=== PATIENT | male | born 1940 | race Caucasian/White ===

== ENCOUNTER 2017-02-05 07:05 | Day surgery (SDC) | payer MEDICARE, BC ==
[~2017-02-05 07:05] MED LIST: Lidocaine 1% with EPINEPHrine 1:100,000 50 ML MDV ONE; Sodium Chloride 0.9% 10 ML ONE; Sodium Tetradecyl Sulfate 1% 20 MG/2 ML SDV ONE
[2017-02-05] MEDS ORDERED: Propofol 200 MG/20 ML SDV ONE (07:18)
[2017-02-05] MEDS ORDERED: Midazolam 1 MG/ML 2 ML SDV ONE (07:18)
[2017-02-05] MEDS ORDERED: fentaNYL 100 MCG/2 ML SDV ONE (07:18)
[2017-02-05] MEDS ORDERED: Sodium Chloride 0.9% 1,000 ML IV SCH (07:45)
[2017-02-05] MEDS ORDERED: Lidocaine 1% w/EPINEPHrine 50 ML, Sodium Bicarbonate 5 MEQ in Sodium Chloride 0.9% 950 ML INJECT ONE (08:45)
[2017-02-05] MEDS ORDERED: Sodium Chloride 0.9% 10 ML SDV FLUSH ONE (09:03)
[2017-02-05] MEDS ORDERED: Lactated Ringers 1,000 ML ONE (09:06)
[2017-02-05 10:41] VITALS: BP 160/108
--- NOTE | 2017-02-06 08:38 | OR ---
DATE OF PROCEDURE: 02/05/2017 PROCEDURE: 1. Radiofrequency ablation of left greater saphenous vein. 2. Radiofrequency ablation of left leg perforating/varicose veins/vein cluster noted underneath ulcer. 3. Sclerotherapy, left leg, multiple. 4. Debridement of ulcer, left leg, 3 cm x 4 cm. COMPLICATIONS: None. BORING AND FILLING MACHINE OPERATOR: None. PREOPERATIVE DIAGNOSES: 1. Venous/varicose vein insufficiency with inflammation and pain. 2. Venous ulcer. POSTOPERATIVE DIAGNOSES: 1. Venous/varicose vein insufficiency with inflammation and pain. 2. Venous ulcer. ANESTHESIA: MAC. RISKS: Risks, benefits, alternatives, and limitations, including, but not limited to infection, bleeding, and injury to structures such as the DVT formation, other risks were explained to the patient and wished to proceed. PROCEDURE IN DETAIL: The patient was placed in supine position. Left GSV was identified at the level of the ankle. This was accessed using a 21-gauge needle exchanged for 35,000 wire, then exchanged for a 7-Setswana sheath. The RFA probe was advanced to 3 cm from the saphenous femoral junction. Tumescent was injected in 1 cm jacket around this. This was very close to the skin, but was verified as second and third time with extra fluid being introduced. The RFA probe was then deployed x2 proximally, distally, and x1 in all other segments. Direct even pressure was performed during this aspect. The sheath and device were then removed. Direct pressure was held for 10 minutes and Dermabond was applied. The patient was also noted to have this perforating vein/varicose vein noted underneath the venous ulcer. This was injected with 4 mL of sodium tetradecyl. This was a 0.33% strength. No evidence of leak into the deep system was noted. The multiple other veins in the left leg were also injected using 0.33% sodium tetradecyl. There were six on the left. No more than 2 mL was injected in one location. This was always drawn back to ensure intravascular injection only. Dressings were lightly compressed due to the patient's arterial concomitant disease. The patient tolerated the procedure well. José Meyer MD /[id number]
== END 2017-02-05 10:40 | disposition home or self-care (01) ==
LOC: JP.SDS 07:05
PROVIDERS: ATTEND Surgery
DX: I87.2 Venous insufficiency (chronic) (peripheral) (principal); I83.812 Varicose veins of left lower extremity with pain; I83.228 Varicose veins of left lower extremity with both ulcer of other part of lower extremity and inflammation; I10 Essential (primary) hypertension; K21.9 Gastro-esophageal reflux disease without esophagitis; E78.00 Pure hypercholesterolemia, unspecified; F17.200 Nicotine dependence, unspecified, uncomplicated
CPT/HCPCS: 11042; 36471; 36475; 36476; J1642; J2250; J2704; J3010; J7040; J7050; J7120; J3490

== ENCOUNTER 2017-11-25 17:40 | Emergency (ER) | payer MEDICARE, BC ==
[2017-11-25 19:50] VITALS: BP 162/88
--- NOTE | 2017-11-25 20:33 | EDM.PDOC ---
ED HPI GENERAL MEDICAL PROBLEM - General Chief Complaint: Lower Extremity Injury/Pain Stated Complaint: INFECTION/LT FOOT Time Seen by Provider: 11/25/17 20:15 Source of Information: Reports: Patient, Family, Old Records History Limitations: Reports: No Limitations - History of Present Illness INITIAL COMMENTS - FREE TEXT/NARRATIVE: 77 yo male recently got out of a [facility] after a short stay after surgery on his R LE. He has seen Dr. Meyer in the past. Says that his L foot has been getting darker and one toe black over the past several days. Did not tell anyone about this apparently. Did make an appt to see his SURVEY INTERVIEWER for tomorrow, but that office called him back late this afternoon and told him to come to the ER. Not having fevers. Pain is tolerable. Onset: Gradual Onset Date: 11/21/17 Duration: Day(s):, Getting Worse Location: Reports: Lower Extremity, Left Quality: Reports: Dull Severity: Mild Improves with: Reports: None Worsens with: Reports: Other (? time) Context: Reports: Other (Has known severe PVD) Associated Symptoms: Reports: No Other Symptoms Treatments SUPERVISOR FABRICATION AND ASSEMBLY: Reports: Other (see below) (none) left foot Pain Score (Numeric/FACES): 5 - Related Data Allergies Allergy/AdvReac Type Severity Reaction Status Date / Time No Known Allergies Allergy Verified 11/25/17 19:36 Home Meds: Home Meds Lisinopril [Lisinopril] 5 mg PO DAILY 02/08/15 [History] Metoprolol Tartrate 100 mg PO BID 02/08/15 [History] Multivitamin with Minerals [Multiple Vitamin] 1 tab PO DAILY 02/08/15 [History] Ranitidine HCl 150 mg PO ASDIRECTED PRN 02/08/15 [History] Simvastatin [Zocor] 40 mg PO BEDTIME 02/08/15 [History] Warfarin Sodium 7.5 mg PO MOWEFR 02/08/15 [History] Warfarin Sodium [Warfarin Sodium] 5 mg PO ASDIRECTED 11/25/17 [History] Past Medical History HEENT History: Reports: Cataract, Impaired Vision Cardiovascular History: Reports: Afib, High Cholesterol, Hypertension Gastrointestinal History: Reports: GERD Genitourinary History: Reports: Prostate Disorder Hematologic History: Reports: Anticoagulation Therapy Oncologic (Cancer) History: Reports: Prostate Dermatologic History: Reports: Decubitus Ulcer - Past Surgical History HEENT Surgical History: Reports: Cataract Surgery GI Surgical History: Reports: Colonoscopy, EGD Male Surgical History: Reports: Prostatectomy Musculoskeletal Surgical History: Reports: Amputation, Other (See Below) Other Musculoskeletal Surgeries/Procedures:: 5 toes on right foot removed October 02 2017 Oncologic Surgical History: Reports: None Social & Family History - Tobacco Use Smoking Status *Q: Light Tobacco Smoker Years of Tobacco use: 40 Packs/Tins Daily: 0.2 Used Tobacco, but Quit: No Second Hand Smoke Exposure: No - Caffeine Use Caffeine Use: Reports: Coffee - Alcohol Use Days Per Week of Alcohol Use: 7 Number of Drinks Per Day: 3 Total Drinks Per Week: 21 - Recreational Drug Use Recreational Drug Use: No Review of Systems - Review of Systems Review Of Systems: See Below Constitutional: Reports: No Symptoms Eyes: Reports: No Symptoms Ears: Reports: No Symptoms Nose: Reports: No Symptoms Mouth/Throat: Reports: No Symptoms Respiratory: Reports: No Symptoms Cardiovascular: Reports: No Symptoms GI/Abdominal: Reports: No Symptoms Genitourinary: Reports: No Symptoms Musculoskeletal: Reports: No Symptoms Skin: Reports: Wound, Change in Color (Toes on L foot) Neurological: Reports: Other (decreased sensation) ED EXAM, GENERAL - Physical Exam Exam: See Below Exam Limited By: No Limitations General Appearance: Alert, WD/WN, No Apparent Distress Eye Exam: Bilateral Eye: Normal Inspection Ears: Normal External Exam, Normal Canal, Hearing Grossly Normal Ear Exam: Bilateral Ear: Auricle Normal, Canal Normal Nose: Normal Inspection, Normal Mucosa Throat/Mouth: Normal Inspection, Normal Lips, Normal Teeth, Normal Oropharynx, Normal Voice, No Airway Compromise Head: Atraumatic, Normocephalic Neck: Normal Inspection, Supple Respiratory/Chest: No Respiratory Distress, Lungs Clear, Normal Breath Sounds Cardiovascular: Tachycardia, Irregularly Irregular GI/Abdominal: Normal Bowel Sounds, Soft, Non-Tender, No Distention Back Exam: Normal Inspection. No: CVA Tenderness (R), CVA Tenderness (L) Neurological: Alert, Oriented, CN II-XII Intact, Normal Cognition Psychiatric: Normal Affect, Normal Mood Skin Exam: Warm, Dry, Ecchymosis, Erythema, Wound/Incision (L distal foot/toes are ischemic. No pulses palpable at knee or below. Foot and leg are warm. L middle toe is black and gangrenous. ). No: Increased Warmth Lymphatic: No Adenopathy Course - Vital Signs Last Recorded V/S: Last Vital Signs Temp 37.4 C 11/25/17 20:18 Pulse 91 11/25/17 20:18 Resp 28 H 11/25/17 20:18 BP 162/88 H 11/25/17 20:18 Pulse Ox 95 11/25/17 20:18 - Orders/Labs/Meds Labs: Laboratory Tests 11/25/17 11/25/17 11/25/17 Range/Units 20:26 20:26 20:26 WBC 11.8 H (4.5-11.0) K/uL RBC 3.80 L (4.30-5.90) M/uL Hgb 11.1 L (12.0-15.0) g/dL Hct 35.6 L (40.0-54.0) % MCV 94 (80-98) fL MCH 29 (27-31) pg MCHC 31 L (32-36) % Plt Count 284 (150-400) K/uL Sodium 134 L (140-148) mmol/L Potassium 3.8 (3.6-5.2) mmol/L Chloride 100 (100-108) mmol/L Carbon Dioxide 25 (21-32) mmol/L Anion Gap 12.8 (5.0-14.0) mmol/L BUN 21 H (7-18) mg/dL Creatinine 1.6 H (0.8-1.3) mg/dL Est Cr Clr Drug Dosing 41.83 mL/min Estimated GFR (MDRD) 42 L (>60) Glucose 136 H (74-106) mg/dL Lactic Acid 1.3 (0.4-2.0) mmol/L Calcium 9.0 (8.5-10.1) mg/dL Troponin I (0.000-0.056) ng/mL Urine Color Urine Appearance Urine pH (4.5-8.0) Ur Specific [place] (1.008-1.030) Urine Protein (NEGATIVE) mg/dL Urine Glucose (UA) (NEGATIVE) mg/dL Urine Ketones (NEGATIVE) mg/dL Urine Occult Blood (NEGATIVE) Urine Nitrite (NEGAITVE) Urine Bilirubin (NEGATIVE) Urine Urobilinogen (NORMAL) mg/dL Ur Leukocyte Esterase (NEGATIVE) Urine RBC (0-5) Urine WBC (0-5) Ur Epithelial Cells Amorphous Sediment Urine Bacteria Urine Mucus Urine Other 11/25/17 11/25/17 Range/Units 20:28 21:35 WBC (4.5-11.0) K/uL RBC (4.30-5.90) M/uL Hgb (12.0-15.0) g/dL Hct (40.0-54.0) % MCV (80-98) fL MCH (27-31) pg MCHC (32-36) % Plt Count (150-400) K/uL Sodium (140-148) mmol/L Potassium (3.6-5.2) mmol/L Chloride (100-108) mmol/L Carbon Dioxide (21-32) mmol/L Anion Gap (5.0-14.0) mmol/L BUN (7-18) mg/dL Creatinine (0.8-1.3) mg/dL Est Cr Clr Drug Dosing mL/min Estimated GFR (MDRD) (>60) Glucose (74-106) mg/dL Lactic Acid (0.4-2.0) mmol/L Calcium (8.5-10.1) mg/dL Troponin I < 0.017 (0.000-0.056) ng/mL Urine Color [place] Urine Appearance Cloudy Urine pH 5.0 (4.5-8.0) Ur Specific [place] 1.020 (1.008-1.030) Urine Protein Trace (NEGATIVE) mg/dL Urine Glucose (UA) Normal (NEGATIVE) mg/dL Urine Ketones Negative (NEGATIVE) mg/dL Urine Occult Blood Moderate (NEGATIVE) Urine Nitrite Negative (NEGAITVE) Urine Bilirubin Small (NEGATIVE) Urine Urobilinogen 4 (NORMAL) mg/dL Ur Leukocyte Esterase Negative (NEGATIVE) Urine RBC 5-10 H (0-5) Urine WBC 0-5 (0-5) Ur Epithelial Cells Few Amorphous Sediment Few Urine Bacteria Few Urine Mucus Moderate Urine Other See note Departure - Departure Time of Disposition: 21:55 Disposition: Home, Self-Care 01 Condition: Fair Clinical Impression: Gangrenous toe - Discharge Information Referrals: Kiersten Hopkins NP [Primary Care Provider] - Forms: ED Department Discharge Additional Instructions: Keep affected foot clean. F/U with Dr. Mitch mauricio. Return here for fever.
== END 2017-11-25 22:13 | disposition home or self-care (01) ==
LOC: JP.ED 17:40
DX: I96 Gangrene, not elsewhere classified (principal); E78.00 Pure hypercholesterolemia, unspecified; I10 Essential (primary) hypertension; F17.210 Nicotine dependence, cigarettes, uncomplicated; Z79.01 Long term (current) use of anticoagulants; Z79.899 Other long term (current) drug therapy
CPT/HCPCS: 36415; 80048; 81001; 83605; 84484; 85027; 99284

== ENCOUNTER 2017-12-03 08:27 | Observation (INO) | payer MEDICARE, BC ==
[~2017-12-03 08:27] MED LIST changes: +Bupivacaine 0.5% 50 ML MDV ONE; -Sodium Chloride 0.9% 10 ML ONE; -Sodium Tetradecyl Sulfate 1% 20 MG/2 ML SDV ONE; +Vit E/Lidocaine/Aloe/Collagen 14 GM TUBE TP ONE
[2017-12-03] MEDS: Sodium Chloride 0.9% 1,000 ML IV SCH (09:28)
[2017-12-03] MEDS ORDERED: ceFAZolin 1 GM Vial ONE (09:35)
[2017-12-03] MEDS ORDERED: fentaNYL 100 MCG/2 ML SDV ONE (09:45)
[2017-12-03] MEDS ORDERED: Propofol 200 MG/20 ML SDV ONE ×2 (09:45→10:53)
[2017-12-03] MEDS ORDERED: ceFAZolin 2 GM in Premix Bag 1 BAG IV ONE (09:45)
[2017-12-03] MEDS ORDERED: Midazolam 1 MG/ML 2 ML SDV ONE (09:46)
[2017-12-03] MEDS: Acetaminophen/HYDROcodone 325-10 MG Tab PO PRN ×3 (13:24→19:58)
[2017-12-03] MEDS ORDERED: Benzocaine/Cetylpyridinium/Menthol Lozenge MUCMEM PRN (14:50)
[2017-12-03] MEDS ORDERED: Promethazine 25 MG/ML SDV IM PRN (14:50)
[2017-12-03] MEDS ORDERED: Ondansetron 4 MG/2 ML SDV IVPUSH PRN (14:50)
[2017-12-03] MEDS ORDERED: Bisacodyl 5 MG Tab PO PRN (14:50)
[2017-12-03] MEDS ORDERED: Docusate Sodium 100 MG Cap PO PRN (14:50)
[2017-12-03] MEDS ORDERED: Metoclopramide 10 MG/2 ML SDV IV PRN (14:50)
[2017-12-03] MEDS ORDERED: fentaNYL 100 MCG/2 ML SDV IVPUSH PRN (14:50)
[2017-12-03] MEDS ORDERED: hydrOXYzine HCl 100 MG/2 ML SDV IM PRN (14:50)
[2017-12-03] MEDS ORDERED: Acetaminophen 325 MG Tab PO PRN (14:50)
[2017-12-03] MEDS ORDERED: diphenhydrAMINE 50 MG/ML SDV IVPUSH PRN (14:50)
[2017-12-03] MEDS ORDERED: Zolpidem 5 MG Tab PO PRN (14:50)
[2017-12-04] MEDS: Sodium Chloride 0.9% 1,000 ML IV SCH (03:38)
[2017-12-04] MEDS ORDERED: Ranitidine 150 MG Tab (PTOM) PO PRN (08:48)
[2017-12-04] MEDS ORDERED: Ibuprofen 200 MG Tab PO PRN (08:48)
[2017-12-04] MEDS ORDERED: Lisinopril 5 MG Tab PO SCH (09:00)
[2017-12-04] MEDS ORDERED: METOPROLOL TARTRATE 100 MG PO SCH (09:00)
[2017-12-04] MEDS ORDERED: Enoxaparin 40 MG/0.4 ML Syringe SUBCUT SCH (09:00)
[2017-12-04] MEDS ORDERED: Non-Formulary Medication 1 Each (Multivitamin With Minerals [Multiple Vitamin] 1 TAB) PO SCH (09:00)
[2017-12-04] MEDS ORDERED: Multivitamins with Iron/Calcium/Folic Acid/Minerals Tab PO SCH (09:30)
[2017-12-04] MEDS ORDERED: Clopidogrel 75 MG Tab (PTOM) PO SCH (09:30)
[2017-12-04] MEDS ORDERED: METOPROLOL TART 100MG (PTOM) PO SCH (09:30)
[2017-12-04] MEDS: Acetaminophen/HYDROcodone 325-10 MG Tab PO PRN (11:23)
[2017-12-04 11:36] VITALS: BP 122/60
[2017-12-04] MEDS ORDERED: amLODIPine 5 MG Tab (PTOM) PO SCH (12:00)
[2017-12-04] MEDS ORDERED: Warfarin 5 MG Tab (PTOM) PO SCH (13:00)
--- NOTE | 2017-12-04 14:27 | OR ---
DATE OF PROCEDURE: 12/03/2017 PROCEDURE PERFORMED: 1. Transmetatarsal amputation of left third toe. 2. Metatarsal amputation of the left #1 toe. 3. Transmetatarsal amputation third toe, right foot. 4. Debridement, right foot (24855). 5. Wound VAC placement, right foot (98907). COMPLICATION: None. BLEACH RANGE OPERATOR: None. FINDINGS: 1. Necrotic left third toe. 2. Exposed metatarsal bodies on the right first and third toe. PREOPERATIVE DIAGNOSIS: Osteomyelitis/ischemic toe. POSTOPERATIVE DIAGNOSIS: Osteomyelitis/ischemic toe. RISKS: Risks, benefits, alternatives, limitations including, but not limited to infection, bleeding, and osteomyelitis, requirement for revisional surgery along with cardiovascular risks were explained to the patient and he wished to proceed. PROCEDURE IN DETAIL: The patient was placed in supine position. The left leg would be addressed first. This would be an amputation in a classic ray type amputation. 1% lidocaine was used to anesthetize the toe. This was in a circumferential fashion. This toe was then transected. Using a longitudinal incision, the right amputation along the acess to the metatarsal head would be performed. This was then mobilized with electrocautery and a TPS saw was used to transect the bone. This was then thoroughly irrigated. The ligaments and tendons were transected and approximated. They were then transected by providing tension on these and then subsequent transection. This was then approximated with 3-0 Vicryl, 4-0 Vicryl, and 4-0 Prolene with a single piece of iodoform gauze was placed within this. The right leg was addressed next and first and third metatarsals were noted to be sticking out from the tissue of the wound and therefore right tip amputations were then performed on this spot using longitudinal incisions on the first and third toe metatarsals and then transaction with total power saws. These were then sent to culture/pathology. This was then reapproximated with 3-0 Vicryl. The remainder of the wound bed was debrided using a 15 blade and a Weck blade. The wound VAC was then applied in standard form using silver and a negative 125 pressure. The patient tolerated the procedure well. José Meyer MD /[id number]
[2017-12-04] MEDS ORDERED: ROSUVASTATIN 20 MG PO SCH (17:00)
[2017-12-04] MEDS ORDERED: Non-Formulary Medication 1 Each (Simvastatin [Zocor] 40 MG) PO SCH (21:00)
[2017-12-05] MEDS ORDERED: Multivitamins with Iron/Calcium/Folic Acid/Minerals Tab PO SCH (09:00)
[2017-12-05] MEDS ORDERED: Warfarin 5 MG Tab (PTOM) PO SCH (13:00)
== END 2017-12-04 15:00 ==
LOC: JP.SDS 08:27 → JP.MS 12:30
PROVIDERS: ADMIT Surgery; ATTEND Surgery
DX: M86.172 Other acute osteomyelitis, left ankle and foot (principal); M86.171 Other acute osteomyelitis, right ankle and foot; L97.529 Non-pressure chronic ulcer of other part of left foot with unspecified severity; L03.032 Cellulitis of left toe; F17.200 Nicotine dependence, unspecified, uncomplicated; I27.20 Pulmonary hypertension, unspecified; I10 Essential (primary) hypertension; I48.91 Unspecified atrial fibrillation; K21.9 Gastro-esophageal reflux disease without esophagitis
CPT/HCPCS: 28805; 28810; 36415; 80048; 85027; 87070; 87075; 87077; 87186; 87205; 93005; 97162; 97165; 97530; 97760; A9270; J0690; J1650; J2250; J2704; J3010; J7040; 88304; 88305; 88311

== ENCOUNTER 2019-03-09 09:11 | Inpatient (IN) | payer MEDICARE, BC ==
[2019-03-09] MEDS ORDERED: Lactated Ringers 1,000 ML IV SCH (09:45)
[2019-03-09] MEDS ORDERED: fentaNYL 100 MCG/2 ML SDV ONE (10:42)
[2019-03-09] MEDS ORDERED: Propofol 200 MG/20 ML SDV ONE (10:42)
--- NOTE | 2019-03-09 13:54 | PCM.HP ---
H&P History of Present Illness - General Date of Service: 03/09/19 Admit Problem/Dx: Admission Diagnosis/Problem Admission Diagnosis/Problem Bleeding Source of Information: Patient, Provider, RN Notes Reviewed History Limitations: Reports: No Limitations - History of Present Illness Initial Comments - Free Text/Narative: Mr. Funes is a 78-year-old gentleman who is a direct admission through same- day surgery because of acute GI bleed. He was seen recently by his primary care provider and found to have significant anemia with a hemoglobin of just above 9. He was referred to Dr. Wood for upper and lower endoscopy. EGD was performed today and showed no obvious abnormalities to explain anemia. Colonoscopy was also obtained and showed red blood throughout the length of the colon, with no obvious bleeding source identified. Laboratory studies obtained after the procedure showed his hemoglobin is dropped to 8.4. He does feel as though he has become somewhat more weak and short of breath but denies any recent hematemesis, melena, or hematochezia. He was treated with oral anticoagulation with warfarin up until a week ago for atrial fibrillation. He was bridged with Lovenox over the past several days. He denies any previous history of GI bleeding. Bilateral Feet Pain Score (Numeric/FACES): 4 Left Foot Pain Score (Numeric/FACES): 6 - Related Data Allergies/Adverse Reactions: Allergies Allergy/AdvReac Type Severity Reaction Status Date / Time No Known Drug Allergies Allergy Other Verified 03/09/19 10:04 Home Medications: Home Meds Metoprolol Tartrate 100 mg PO BID 02/08/15 [History] Multivitamin with Minerals [Multiple Vitamin] 1 tab PO DAILY 02/08/15 [History] Ranitidine HCl 150 mg PO BID PRN 02/08/15 [History] Warfarin Sodium 7.5 mg PO ASDIRECTED 02/08/15 [History] Warfarin Sodium 5 mg PO ASDIRECTED 11/25/17 [History] Rosuvastatin [Crestor] 20 mg PO DAILY 12/04/17 [History] Enoxaparin Sodium [Lovenox] 135 mg SQ DAILY 03/07/19 [History] Ibuprofen 200 mg PO Q6HR PRN 03/07/19 [History] Past Medical History HEENT History: Reports: Cataract, Impaired Vision Cardiovascular History: Reports: Afib, High Cholesterol, Hypertension Gastrointestinal History: Reports: GERD Genitourinary History: Reports: Prostate Disorder Endocrine/Metabolic History: Reports: Diabetes, Type II Hematologic History: Reports: Anticoagulation Therapy Oncologic (Cancer) History: Reports: Prostate Dermatologic History: Reports: Decubitus Ulcer - Past Surgical History HEENT Surgical History: Reports: Cataract Surgery GI Surgical History: Reports: Colonoscopy, EGD Male Surgical History: Reports: Prostatectomy Musculoskeletal Surgical History: Reports: Amputation, Other (See Below) Other Musculoskeletal Surgeries/Procedures:: 5 toes on right foot removed October 02 2017 - left foot Nov 2017 - toes amputated Oncologic Surgical History: Reports: None Social & Family History - Tobacco Use Smoking Status *Q: Former Smoker Used Tobacco, but Quit: Yes Month/Year Tobacco Last Used: 2016 Second Hand Smoke Exposure: No - Caffeine Use Caffeine Use: Reports: Coffee, Soda, Tea - Recreational Drug Use Recreational Drug Use: No H&P Review of Systems - Review of Systems: Review Of Systems: See Below General: Reports: Weakness, Fatigue. Denies: Fever, Chills HEENT: Reports: No Symptoms Pulmonary: Reports: No Symptoms Cardiovascular: Reports: No Symptoms Gastrointestinal: Reports: No Symptoms Genitourinary: Reports: No Symptoms Musculoskeletal: Reports: No Symptoms Skin: Reports: No Symptoms Psychiatric: Reports: No Symptoms Neurological: Reports: No Symptoms Hematologic/Lymphatic: Reports: No Symptoms Immunologic: Reports: No Symptoms Exam - Exam Exam: See Below - Vital Signs Vital Signs: Last Vital Signs Temp 96.8 F 03/09/19 12:30 Pulse 78 03/09/19 12:46 Resp 18 03/09/19 12:46 BP 137/74 03/09/19 12:46 Pulse Ox 91 L 03/09/19 12:46 Weight: 199 lb - Exam Quality Assessment: DVT Prophylaxis General: Alert, Oriented, Cooperative HEENT: Conjunctiva Clear, Hearing Intact, Mucosa Moist & [place], Normal Nasal Septum, Posterior Pharynx Clear, Pupils Equal Neck: Supple, Trachea Midline, +2 Carotid Pulse wo Bruit Lungs: Clear to Auscultation, Normal Respiratory Effort Cardiovascular: Regular Rate, Regular Rhythm, Normal S1, Normal S2, Systolic Murmur. No: Diastolic Murmur GI/Abdominal Exam: Soft, Non-Tender, No Organomegaly, No Distention Back Exam: Normal Inspection, Full Range of Motion Extremities: Non-Tender, No Pedal Edema Skin: Warm, Dry, Intact Neurological: Cranial Nerves Intact, Strength Equal Bilateral, Normal Speech, Normal Tone, Sensation Intact. No: Focal Deficit Neuro Extensive - Mental Status: Alert, Oriented x3, Normal Mood/Affect, Normal Cognition, Memory Intact - Patient Data Lab Results Last 24 hrs: Laboratory Results - last 24 hr 03/09/19 03/09/19 03/09/19 Range/Units 12:33 12:33 12:33 WBC (4.5-11.0) K/uL RBC (4.30-5.90) M/uL Hgb (12.0-15.0) g/dL Hct (40.0-54.0) % MCV (80-98) fL MCH (27-31) pg MCHC (32-36) % Plt Count (150-400) K/uL PT 13.7 H (9.5-12.0) sec INR 1.26 H (0.80-1.20) APTT 35.7 (27.0-36.0) sec Sodium (140-148) mmol/L Potassium (3.6-5.2) mmol/L Chloride (100-108) mmol/L Carbon Dioxide (21-32) mmol/L Anion Gap (5.0-14.0) mmol/L BUN (7-18) mg/dL Creatinine (0.8-1.3) mg/dL Est Cr Clr Drug Dosing mL/min Estimated GFR (MDRD) (>60) Glucose (74-106) mg/dL Calcium (8.5-10.1) mg/dL Total Bilirubin (0.2-1.0) mg/dL AST (15-37) U/L ALT (12-78) U/L Alkaline Phosphatase (46-116) U/L Total Protein (6.4-8.2) g/dL Albumin (3.4-5.0) g/dL Globulin (2.3-3.5) g/dL Albumin/Globulin Ratio (1.2-2.2) Blood Type B POSITIVE Gel Antibody Screen Negative 03/09/19 03/09/19 Range/Units 12:33 12:33 WBC 6.2 (4.5-11.0) K/uL RBC 2.64 L (4.30-5.90) M/uL Hgb 7.9 L (12.0-15.0) g/dL Hct 28.4 L (40.0-54.0) % MCV 108 H (80-98) fL MCH 30 (27-31) pg MCHC 28 L (32-36) % Plt Count 190 (150-400) K/uL PT (9.5-12.0) sec INR (0.80-1.20) APTT (27.0-36.0) sec Sodium 136 L (140-148) mmol/L Potassium 4.9 (3.6-5.2) mmol/L Chloride 102 (100-108) mmol/L Carbon Dioxide 30 (21-32) mmol/L Anion Gap 8.9 (5.0-14.0) mmol/L BUN 17 (7-18) mg/dL Creatinine 1.2 (0.8-1.3) mg/dL Est Cr Clr Drug Dosing 59.94 mL/min Estimated GFR (MDRD) 59 L (>60) Glucose 91 (74-106) mg/dL Calcium 8.7 (8.5-10.1) mg/dL Total Bilirubin 0.5 (0.2-1.0) mg/dL AST 23 (15-37) U/L ALT 20 (12-78) U/L Alkaline Phosphatase 110 (46-116) U/L Total Protein 6.4 (6.4-8.2) g/dL Albumin 2.6 L (3.4-5.0) g/dL Globulin 3.8 H (2.3-3.5) g/dL Albumin/Globulin Ratio 0.7 L (1.2-2.2) Blood Type Gel Antibody Screen Result Diagrams: 03/09/19 12:33 03/09/19 12:33 *Q Meaningful Use (ADM) - VTE *Q VTE Pharmacological Contraindications *Q: Active Hemorrhage - VTE Risk Assess *Q Each Risk Factor Represents 1 Point: None Total Score 1 Point Risk Factors: 0 Each Risk Factor Represents 2 Points: None Total Score 2 Point Risk Factors: 0 Each Risk Factor Represents 3 Points: Age 75 Years or Greater Total Score 3 Point Risk Factors: 3 Each Risk Factor Represents 5 Points: None Total Score 5 Point Risk Factors: 0 Venous Thromboembolism Risk Factor Score *Q: 3 Problem List Initiated/Reviewed/Updated: Yes Orders Last 24hrs: Active Orders 24 hr Category Date Time Status Patient Status Manage Transfer [TRANSFER] Routine ADT 03/09/19 13:46 Ordered Notify Provider Consults [RC] ASDIRECTED Care 03/09/19 12:01 Active Consult to Physician [CONS] Urgent Cons 03/09/19 11:59 Ordered CBC WITH AUTO DIFF [HEME] Routine Lab 03/10/19 05:11 Ordered COMPREHENSIVE METABOLIC PN,CMP [CHEM] Routine Lab 03/10/19 05:11 Ordered Lactated Ringers [Ringers, Lactated] 1,000 ml Med 03/09/19 09:45 Active IV ASDIRECTED Resuscitation Status Routine Resus Stat 03/09/19 13:48 Ordered Medication Orders Lactated Ringer's (Ringers, Lactated) 1,000 mls @ 100 mls/hr IV ASDIRECTED KISHORE Last Admin: 03/09/19 10:06 Dose: 100 mls/hr Assessment/Plan Comment:: ASSESSMENT AND PLAN GI BLEED-source not identified despite EGD and colonoscopy earlier today. Hemoglobin has dropped since last week and he was noted to have red blood throughout the length of the colon on colonoscopy today. He has been feeling more weak and tired. Denies any recent history of hematemesis, melena, hematochezia, or hematuria. He was on oral anticoagulation with warfarin up until a week ago which was discontinued but has encouraged with Lovenox. -Discontinue warfarin and Lovenox -Serial hemoglobin levels -Transfuse 1 unit of red blood cells, 1 unit on hold -Consider repeat colonoscopy for further bleeding -If he continues to show evidence of bleeding consider transfer to a tertiary care center for subspecialty evaluation ACUTE BLOOD LOSS ANEMIA ATRIAL FIBRILLATION WITH CONTROLLED VENTRICULAR RESPONSE -Hold anticoagulation as above MAINTENANCE ISSUES -DVT prophylaxis; scuds, hold on anticoagulation because of acute bleed -GI prophylaxis; not indicated -Chow catheter; not indicated -Nutrition; nothing by mouth -Nicotine dependence; not required CODE STATUS-FULL CODE ADMISSION STATUS-patient will be admitted to inpatient status, expect at least a 2 night hospital stay for evaluation and management of problems as outlined above. At the time of this admission I do not reasonably expected evaluation and management of this problem will require more than a 96 hour hospital stay. DISPOSITION-anticipate discharge to home after the hospital stay. PRIMARY CARE PROVIDER-Dr. Cormier
[2019-03-09] MEDS ORDERED: Albuterol 0.083% 2.5 MG/3 ML Neb Soln NEB PRN (14:12)
[2019-03-09] MEDS ORDERED: Ondansetron 4 MG/2 ML SDV IV PRN (14:12)
[2019-03-09] MEDS ORDERED: Sodium Chloride 0.9% 10 ML Syringe FLUSH PRN (14:12)
[2019-03-09] MEDS ORDERED: Acetaminophen 325 MG Tab PO PRN (14:12)
--- NOTE | 2019-03-09 15:20 | PCM.HP ---
H&P History of Present Illness - General Date of Service: 03/09/19 Admit Problem/Dx: Admission Diagnosis/Problem Admission Diagnosis/Problem Bleeding Bilateral Feet Pain Score (Numeric/FACES): 4 Left Foot Pain Score (Numeric/FACES): 6 - Related Data Allergies/Adverse Reactions: Allergies Allergy/AdvReac Type Severity Reaction Status Date / Time No Known Drug Allergies Allergy Other Verified 03/09/19 10:04 Home Medications: Home Meds Metoprolol Tartrate 100 mg PO BID 02/08/15 [History] Multivitamin with Minerals [Multiple Vitamin] 1 tab PO DAILY 02/08/15 [History] Ranitidine HCl 150 mg PO BID PRN 02/08/15 [History] Warfarin Sodium 7.5 mg PO ASDIRECTED 02/08/15 [History] Warfarin Sodium 5 mg PO ASDIRECTED 11/25/17 [History] Rosuvastatin [Crestor] 20 mg PO DAILY 12/04/17 [History] Enoxaparin Sodium [Lovenox] 135 mg SQ DAILY 03/07/19 [History] Ibuprofen 200 mg PO Q6HR PRN 03/07/19 [History] Past Medical History HEENT History: Reports: Cataract, Impaired Vision Cardiovascular History: Reports: Afib, High Cholesterol, Hypertension Gastrointestinal History: Reports: GERD Genitourinary History: Reports: Prostate Disorder Endocrine/Metabolic History: Reports: Diabetes, Type II Hematologic History: Reports: Anticoagulation Therapy Oncologic (Cancer) History: Reports: Prostate Dermatologic History: Reports: Decubitus Ulcer - Past Surgical History HEENT Surgical History: Reports: Cataract Surgery GI Surgical History: Reports: Colonoscopy, EGD Male Surgical History: Reports: Prostatectomy Musculoskeletal Surgical History: Reports: Amputation, Other (See Below) Other Musculoskeletal Surgeries/Procedures:: 5 toes on right foot removed October 02 2017 - left foot Nov 2017 - toes amputated Oncologic Surgical History: Reports: None Social & Family History - Tobacco Use Smoking Status *Q: Former Smoker Used Tobacco, but Quit: Yes Month/Year Tobacco Last Used: 2016 Second Hand Smoke Exposure: No - Caffeine Use Caffeine Use: Reports: Coffee, Soda, Tea - Alcohol Use Number of Drinks Per Day: 4 Date of Last Drink: 03/07/19 - Recreational Drug Use Recreational Drug Use: No Exam - Vital Signs Vital Signs: Last Vital Signs Temp 94.9 F L 03/09/19 14:28 Pulse 95 03/09/19 14:28 Resp 20 03/09/19 14:28 BP 134/87 03/09/19 14:28 Pulse Ox 93 L 03/09/19 14:28 Weight: 199 lb - Patient Data Lab Results Last 24 hrs: Laboratory Results - last 24 hr 03/09/19 03/09/19 03/09/19 Range/Units 12:33 12:33 12:33 WBC (4.5-11.0) K/uL RBC (4.30-5.90) M/uL Hgb (12.0-15.0) g/dL Hct (40.0-54.0) % MCV (80-98) fL MCH (27-31) pg MCHC (32-36) % Plt Count (150-400) K/uL PT 13.7 H (9.5-12.0) sec INR 1.26 H (0.80-1.20) APTT 35.7 (27.0-36.0) sec Sodium (140-148) mmol/L Potassium (3.6-5.2) mmol/L Chloride (100-108) mmol/L Carbon Dioxide (21-32) mmol/L Anion Gap (5.0-14.0) mmol/L BUN (7-18) mg/dL Creatinine (0.8-1.3) mg/dL Est Cr Clr Drug Dosing mL/min Estimated GFR (MDRD) (>60) Glucose (74-106) mg/dL Calcium (8.5-10.1) mg/dL Total Bilirubin (0.2-1.0) mg/dL AST (15-37) U/L ALT (12-78) U/L Alkaline Phosphatase (46-116) U/L Total Protein (6.4-8.2) g/dL Albumin (3.4-5.0) g/dL Globulin (2.3-3.5) g/dL Albumin/Globulin Ratio (1.2-2.2) Blood Type B POSITIVE Gel Antibody Screen Negative Crossmatch See Detail 03/09/19 03/09/19 Range/Units 12:33 12:33 WBC 6.2 (4.5-11.0) K/uL RBC 2.64 L (4.30-5.90) M/uL Hgb 7.9 L (12.0-15.0) g/dL Hct 28.4 L (40.0-54.0) % MCV 108 H (80-98) fL MCH 30 (27-31) pg MCHC 28 L (32-36) % Plt Count 190 (150-400) K/uL PT (9.5-12.0) sec INR (0.80-1.20) APTT (27.0-36.0) sec Sodium 136 L (140-148) mmol/L Potassium 4.9 (3.6-5.2) mmol/L Chloride 102 (100-108) mmol/L Carbon Dioxide 30 (21-32) mmol/L Anion Gap 8.9 (5.0-14.0) mmol/L BUN 17 (7-18) mg/dL Creatinine 1.2 (0.8-1.3) mg/dL Est Cr Clr Drug Dosing 59.94 mL/min Estimated GFR (MDRD) 59 L (>60) Glucose 91 (74-106) mg/dL Calcium 8.7 (8.5-10.1) mg/dL Total Bilirubin 0.5 (0.2-1.0) mg/dL AST 23 (15-37) U/L ALT 20 (12-78) U/L Alkaline Phosphatase 110 (46-116) U/L Total Protein 6.4 (6.4-8.2) g/dL Albumin 2.6 L (3.4-5.0) g/dL Globulin 3.8 H (2.3-3.5) g/dL Albumin/Globulin Ratio 0.7 L (1.2-2.2) Blood Type Gel Antibody Screen Crossmatch Result Diagrams: 03/09/19 12:33 03/09/19 12:33 *Q Meaningful Use (ADM) - VTE *Q VTE Pharmacological Contraindications *Q: Active Hemorrhage Orders Last 24hrs: Active Orders 24 hr Category Date Time Status Patient Status [ADT] Routine ADT 03/09/19 14:12 Active Ambulate [RC] QID Care 03/09/19 14:12 Active Height and Weight [RC] DAILY Care 03/09/19 14:12 Active Intake and Output [RC] QSHIFT Care 03/09/19 14:12 Active Notify Provider Consults [RC] ASDIRECTED Care 03/09/19 12:01 Inactive Notify Provider Consults [RC] ASDIRECTED Care 03/09/19 14:12 Active Notify Provider Vital Signs [RC] ASDIRECTED Care 03/09/19 14:12 Active Oxygen Therapy [RC] PRN Care 03/09/19 14:12 Active Peripheral IV Care [RC] . DIRECTED Care 03/09/19 14:12 Active RT Aerosol Therapy [RC] ASDIRECTED Care 03/09/19 14:12 Active Up With Assistance [RC] ASDIRECTED Care 03/09/19 14:12 Active Up to Chair [RC] QID Care 03/09/19 14:12 Active VTE/DVT Education [RC] Per Unit Routine Care 03/09/19 14:12 Active Vital Signs [RC] Q4H Care 03/09/19 14:12 Active Consult to Physician [CONS] Routine Cons 03/09/19 14:12 Ordered Nothing per Oral Now Diet [DIET] Diet 03/09/19 Lunch Active BASIC METABOLIC PANEL,BMP [CHEM] AM Lab 03/10/19 05:11 Ordered CBC W/O DIFF,HEMOGRAM [HEME] AM Lab 03/10/19 05:11 Ordered HGB [HEMOGLOBIN] [HEME] Stat Lab 03/09/19 17:00 Ordered HGB [HEMOGLOBIN] [HEME] Stat Lab 03/09/19 23:00 Ordered MAGNESIUM [CHEM] AM Lab 03/10/19 05:11 Ordered RED BLOOD CELLS LP [BBK] Urgent Lab 03/09/19 12:33 Results TYPE AND SCREEN [BBK] Routine Lab 03/09/19 12:33 Results Acetaminophen [Tylenol] Med 03/09/19 14:12 Active 650 mg PO Q4H PRN Albuterol [Proventil Neb Soln] Med 03/09/19 14:12 Active 2.5 mg NEB Q4H PRN Lactated Ringers [Ringers, Lactated] 1,000 ml Med 03/09/19 14:12 Active IV ASDIRECTED Metoprolol Tartrate [Lopressor] Med 03/09/19 21:00 Active 100 mg PO BID Ondansetron [Zofran] Med 03/09/19 14:12 Active 4 mg IV Q4H PRN Rosuvastatin [Crestor] Med 03/10/19 09:00 Active 20 mg PO DAILY Sodium Chloride 0.9% [Saline Flush] Med 03/09/19 14:12 Active 10 ml FLUSH ASDIRECTED PRN Peripheral IV Insertion Adult [OM.PC] Routine Ot 03/09/19 14:12 Ordered Transfuse Red Blood Cells [COMM] Urgent Oth 03/09/19 14:12 Ordered VTE Pharmacological Contraindications [AST] Per Unit Oth 03/09/19 14:12 Ordered Routine Resuscitation Status Routine Resus Stat 03/09/19 13:48 Ordered Medication Orders Acetaminophen (Tylenol) 650 mg PO Q4H PRN PRN Reason: Pain (Mild 1-3)/fever Albuterol (Proventil Neb Soln) 2.5 mg NEB Q4H PRN PRN Reason: Shortness Of Breath/wheezing Lactated Ringer's (Ringers, Lactated) 1,000 mls @ 125 mls/hr IV ASDIRECTED [facility] Metoprolol Tartrate (Lopressor) 100 mg PO BID [facility] Ondansetron HCl (Zofran) 4 mg IV Q4H PRN PRN Reason: Nausea/Vomiting Rosuvastatin Calcium (Crestor) 20 mg PO DAILY [facility] Sodium Chloride (Saline Flush) 10 ml FLUSH ASDIRECTED PRN PRN Reason: Keep Vein Open Assessment/Plan Comment:: ASSESSMENT AND PLAN MAINTENANCE ISSUES -DVT prophylaxis; Lovenox 40 mg subcutaneous daily -GI prophylaxis; ot indicated -Chow catheter; not indicated -Nutrition; nothing by mouth -Nicotine dependence; not required CODE STATUS-FULL CODE ADMISSION STATUS-patient will be admitted to inpatient status, expect at least a 2 night hospital stay for evaluation and management of problems as outlined above. At the time of this admission I do not reasonably expected evaluation and management of this problem will require more than a 96 hour hospital stay. DISPOSITION-anticipate discharge to home after the hospital stay. PRIMARY CARE PROVIDER-Dr. Cormier
[2019-03-09] MEDS: traMADol 50 MG Tab PO PRN (17:02)
[2019-03-09] MEDS: Lactated Ringers 1,000 ML IV SCH (18:47)
[2019-03-09] MEDS: Bacitracin Oint 28.35 GM Tube TOP SCH (20:30)
[2019-03-09] MEDS: Metoprolol Tartrate 50 MG Tab PO SCH (20:43)
[2019-03-10] MEDS: Lactated Ringers 1,000 ML IV SCH (02:10)
--- NOTE | 2019-03-10 06:46 | PCM.PN ---
- General Info Date of Service: 03/10/19 Admission Dx/Problem (Free Text): GI hemorrhage. Subjective Update: No complaints. Denies passing blood. Functional Status: Reports: Pain Controlled, Ambulating, Urinating - Review of Systems General: Reports: No Symptoms HEENT: Reports: No Symptoms Pulmonary: Reports: No Symptoms Cardiovascular: Reports: No Symptoms Gastrointestinal: Reports: No Symptoms Genitourinary: Reports: No Symptoms Musculoskeletal: Reports: No Symptoms Skin: Reports: No Symptoms Neurological: Reports: No Symptoms Psychiatric: Reports: No Symptoms - Patient Data Vitals - Most Recent: Last Vital Signs Temp 98 F 03/10/19 02:26 Pulse 75 03/10/19 02:26 Resp 24 H 03/10/19 02:26 BP 110/60 03/10/19 02:26 Pulse Ox 91 L 03/10/19 02:26 Weight - Most Recent: 199 lb I&O - Last 24 Hours: Intake & Output 03/09/19 03/09/19 03/10/19 14:59 22:59 06:59 Intake Total 369 20 Output Total 600 300 Balance -231 -280 Lab Results Last 24 Hours: Laboratory Results - last 24 hr 03/09/19 03/09/19 03/09/19 Range/Units 12:33 12:33 12:33 WBC (4.5-11.0) K/uL RBC (4.30-5.90) M/uL Hgb (12.0-15.0) g/dL Hct (40.0-54.0) % MCV (80-98) fL MCH (27-31) pg MCHC (32-36) % Plt Count (150-400) K/uL PT 13.7 H (9.5-12.0) sec INR 1.26 H (0.80-1.20) APTT 35.7 (27.0-36.0) sec Sodium (140-148) mmol/L Potassium (3.6-5.2) mmol/L Chloride (100-108) mmol/L Carbon Dioxide (21-32) mmol/L Anion Gap (5.0-14.0) mmol/L BUN (7-18) mg/dL Creatinine (0.8-1.3) mg/dL Est Cr Clr Drug Dosing mL/min Estimated GFR (MDRD) (>60) Glucose (74-106) mg/dL Calcium (8.5-10.1) mg/dL Magnesium (1.8-2.4) mg/dL Total Bilirubin (0.2-1.0) mg/dL AST (15-37) U/L ALT (12-78) U/L Alkaline Phosphatase (46-116) U/L Total Protein (6.4-8.2) g/dL Albumin (3.4-5.0) g/dL Globulin (2.3-3.5) g/dL Albumin/Globulin Ratio (1.2-2.2) Blood Type B POSITIVE Gel Antibody Screen Negative Crossmatch See Detail 03/09/19 03/09/19 03/09/19 Range/Units 12:33 12:33 19:45 WBC 6.2 (4.5-11.0) K/uL RBC 2.64 L (4.30-5.90) M/uL Hgb 7.9 L 8.8 L (12.0-15.0) g/dL Hct 28.4 L (40.0-54.0) % MCV 108 H (80-98) fL MCH 30 (27-31) pg MCHC 28 L (32-36) % Plt Count 190 (150-400) K/uL PT (9.5-12.0) sec INR (0.80-1.20) APTT (27.0-36.0) sec Sodium 136 L (140-148) mmol/L Potassium 4.9 (3.6-5.2) mmol/L Chloride 102 (100-108) mmol/L Carbon Dioxide 30 (21-32) mmol/L Anion Gap 8.9 (5.0-14.0) mmol/L BUN 17 (7-18) mg/dL Creatinine 1.2 (0.8-1.3) mg/dL Est Cr Clr Drug Dosing 59.94 mL/min Estimated GFR (MDRD) 59 L (>60) Glucose 91 (74-106) mg/dL Calcium 8.7 (8.5-10.1) mg/dL Magnesium (1.8-2.4) mg/dL Total Bilirubin 0.5 (0.2-1.0) mg/dL AST 23 (15-37) U/L ALT 20 (12-78) U/L Alkaline Phosphatase 110 (46-116) U/L Total Protein 6.4 (6.4-8.2) g/dL Albumin 2.6 L (3.4-5.0) g/dL Globulin 3.8 H (2.3-3.5) g/dL Albumin/Globulin Ratio 0.7 L (1.2-2.2) Blood Type Gel Antibody Screen Crossmatch 03/10/19 03/10/19 03/10/19 Range/Units 02:00 05:00 05:00 WBC 5.7 (4.5-11.0) K/uL RBC 2.94 L (4.30-5.90) M/uL Hgb 9.6 L 8.8 L (12.0-15.0) g/dL Hct 30.8 L (40.0-54.0) % MCV 105 H (80-98) fL MCH 30 (27-31) pg MCHC 29 L (32-36) % Plt Count 169 (150-400) K/uL PT (9.5-12.0) sec INR (0.80-1.20) APTT (27.0-36.0) sec Sodium 137 L (140-148) mmol/L Potassium 4.5 (3.6-5.2) mmol/L Chloride 103 (100-108) mmol/L Carbon Dioxide 29 (21-32) mmol/L Anion Gap 9.5 (5.0-14.0) mmol/L BUN 16 (7-18) mg/dL Creatinine 1.1 (0.8-1.3) mg/dL Est Cr Clr Drug Dosing 65.41 mL/min Estimated GFR (MDRD) > 60 (>60) Glucose 83 (74-106) mg/dL Calcium 8.7 (8.5-10.1) mg/dL Magnesium 1.6 L (1.8-2.4) mg/dL Total Bilirubin (0.2-1.0) mg/dL AST (15-37) U/L ALT (12-78) U/L Alkaline Phosphatase (46-116) U/L Total Protein (6.4-8.2) g/dL Albumin (3.4-5.0) g/dL Globulin (2.3-3.5) g/dL Albumin/Globulin Ratio (1.2-2.2) Blood Type Gel Antibody Screen Crossmatch Med Orders - Current: Current Medications Acetaminophen (Tylenol) 650 mg PO Q4H PRN PRN Reason: Pain (Mild 1-3)/fever Albuterol (Proventil Neb Soln) 2.5 mg NEB Q4H PRN PRN Reason: Shortness Of Breath/wheezing Bacitracin (Bacitracin Oint) 0 gm TOP BEDTIME [facility] Last Admin: 03/09/19 20:30 Dose: 1 applic Lactated Ringer's (Ringers, Lactated) 1,000 mls @ 125 mls/hr IV ASDIRECTED [facility] Last Admin: 03/10/19 02:10 Dose: 125 mls/hr Metoprolol Tartrate (Lopressor) 100 mg PO BID [facility] Last Admin: 03/09/19 20:43 Dose: 100 mg Ondansetron HCl (Zofran) 4 mg IV Q4H PRN PRN Reason: Nausea/Vomiting Rosuvastatin Calcium (Crestor) 20 mg PO DAILY [facility] Sodium Chloride (Saline Flush) 10 ml FLUSH ASDIRECTED PRN PRN Reason: Keep Vein Open Tramadol HCl (Ultram) 50 mg PO Q4H PRN PRN Reason: Pain Last Admin: 03/09/19 17:02 Dose: 50 mg Discontinued Medications Fentanyl (Sublimaze) Confirm Administered Dose 100 mcg .ROUTE .STK-MED ONE Stop: 03/09/19 10:43 Lactated Ringer's (Ringers, Lactated) 1,000 mls @ 100 mls/hr IV ASDIRECTED [facility] Last Admin: 03/09/19 10:06 Dose: 100 mls/hr Propofol (Diprivan 20 Ml) Confirm Administered Dose 200 mg .ROUTE .STK-MED ONE Stop: 03/09/19 10:43 - Exam Quality Assessment: DVT Prophylaxis General: Alert, Oriented, Cooperative, No Acute Distress Lungs: Clear to Auscultation, Normal Respiratory Effort Cardiovascular: Irregular Rhythm, Murmurs GI/Abdominal Exam: Normal Bowel Sounds, Soft, Non-Tender, No Organomegaly, No Distention, No Abnormal Bruit, No Mass, Pelvis Stable Back Exam: Normal Inspection Extremities: Normal Inspection Skin: Warm, Dry, Intact Neurological: No New Focal Deficit Psy/Mental Status: Alert, Normal Affect, Normal Mood EKG INTERPRETATION Rhythm: A-Fib - Problem List & Annotations (1) GI hemorrhage SNOMED Code(s): 97696516 Code(s): K92.2 - GASTROINTESTINAL HEMORRHAGE, UNSPECIFIED Status: Acute Current Visit: Yes Qualifiers: GI bleed type/associated pathology: unspecified gastrointestinal hemorrhage type Qualified Code(s): K92.2 - Gastrointestinal hemorrhage, unspecified - Problem List Review Problem List Initiated/Reviewed/Updated: Yes - My Orders Last 24 Hours: My Active Orders 03/09/19 12:01 Notify Provider Consults [RC] ASDIRECTED 03/09/19 12:33 TYPE AND SCREEN [BBK] Routine - Assessment Assessment:: Hgb 8.8, peak Hgb after transfusion 9.6. - Plan Plan:: ASSESSMENT AND PLAN GI BLEED-source not identified despite EGD and colonoscopy earlier today. Hemoglobin has dropped since last week and he was noted to have red blood throughout the length of the colon on colonoscopy today. He has been feeling more weak and tired. Denies any recent history of hematemesis, melena, hematochezia, or hematuria. He was on oral anticoagulation with warfarin up until a week ago which was discontinued but has encouraged with Lovenox. -Discontinue warfarin and Lovenox -Serial hemoglobin levels -Transfuse 1 unit of red blood cells, 1 unit on hold -Consider repeat colonoscopy for further bleeding -If he continues to show evidence of bleeding consider transfer to a tertiary care center for subspecialty evaluation ACUTE BLOOD LOSS ANEMIA ATRIAL FIBRILLATION WITH CONTROLLED VENTRICULAR RESPONSE -Hold anticoagulation as above MAINTENANCE ISSUES -DVT prophylaxis; scuds, hold on anticoagulation because of acute bleed -GI prophylaxis; not indicated -Chow catheter; not indicated -Nutrition; nothing by mouth -Nicotine dependence; not required CODE STATUS-FULL CODE ADMISSION STATUS-patient will be admitted to inpatient status, expect at least a 2 night hospital stay for evaluation and management of problems as outlined above. At the time of this admission I do not reasonably expected evaluation and management of this problem will require more than a 96 hour hospital stay. DISPOSITION-anticipate discharge to home after the hospital stay. PRIMARY CARE PROVIDER-Dr. Varner Will follow.
[2019-03-10] MEDS: traMADol 50 MG Tab PO PRN (08:56)
[2019-03-10] MEDS: Rosuvastatin 10 MG Tab PO SCH (08:56)
[2019-03-10] MEDS: Metoprolol Tartrate 50 MG Tab PO SCH ×2 (08:56→21:32)
[2019-03-10] MEDS: Magnesium Oxide 400 MG Tab PO SCH ×2 (08:57→21:33)
--- NOTE | 2019-03-10 09:16 | OR ---
DATE OF PROCEDURE: 03/09/2019 PREOPERATIVE DIAGNOSES: Upper abdominal pain, history of adenomatous colon polyps, anemia. POSTOPERATIVE DIAGNOSES: Unremarkable upper endoscopy; blood throughout entire colon, both old and new; history of adenomatous polyps. PROCEDURES: Esophagogastroduodenoscopy and colonoscopy to the cecum. SURGEON: Noe Wood MD ANESTHESIA: IV anesthesia with monitored anesthesia care. INDICATION: This 78-year-old white male is referred for upper and lower endoscopy. On the chart, the indication for upper endoscopy is gastroesophageal reflux disease; however, the patient denies heartburn. He says he has some upper abdominal pain. He says, 40 years ago, he underwent upper endoscopy. The indication for the colonoscopy is a history of adenomatous polyps. He says his last colonoscopic exam was done three or four years ago. He was noted by Dr. Cormier to be anemic. He has been taking Coumadin for atrial fibrillation. This was stopped the last week for the studies today. His last hemoglobin was in the 9 to 10 range. I counseled him for upper and lower endoscopy with possible biopsy and/or polypectomy, including risks and alternatives, and he gave his informed consent to proceed. DESCRIPTION OF PROCEDURE: The patient was placed in the left lateral decubitus position. IV anesthesia was administered by the Anesthesia Service. Time-out was held. The flexible video Olympus upper endoscope was passed through his mouth, down his esophagus, and into his stomach. The scope was easily passed through the pylorus and into the duodenum, reaching its third portion. The scope was then slowly withdrawn examining the mucosa throughout. The duodenal mucosa appeared unremarkable. The scope was brought up through the pylorus. The antrum appeared unremarkable. The scope was retroflexed. He may have had a large hiatal hernia. The mucosa all appeared unremarkable. The scope was brought up through the GE junction, which appeared unremarkable, and then up through the unremarkable- appearing esophagus and was removed. Next, a rectal exam was performed with blood being on the digit. The flexible video Olympus colonoscope was introduced through his anus, up his rectum and out his colon, all the way to the cecum. We encountered both bright red blood and also old black blood. The dark blood was up in the proximal right colon and cecum areas. En route to the cecum, we encountered multiple large left-sided diverticula. There was no bleeding or inflammation associated with them. At no point did we see any cause for bleeding. Once the cecum was reached, the scope was slowly withdrawn, examining the mucosa throughout. No other mucosal abnormalities were noted. The scope was retroflexed in the rectum with the distal rectum appearing unremarkable. The scope was straightened and removed. He tolerated the procedure well. Noe Wood MD /[id number]
[2019-03-10] MEDS: Magnesium Sulfate/Water 2 GM in Premix Bag 1 BAG IV SCH ×2 (09:29→16:01)
--- NOTE | 2019-03-10 16:05 | PCM.PN ---
- General Info Date of Service: 03/10/19 Subjective Update: Mr. Funes is doing well since admission with no evidence of active GI blood loss. Hemoglobin has remained stable following transfusion of 1 unit of red blood cells yesterday. He has had one normal looking stool with no evidence of blood. Functional Status: Reports: Tolerating Diet, Ambulating, Urinating - Review of Systems General: Reports: No Symptoms Pulmonary: Reports: No Symptoms Cardiovascular: Reports: No Symptoms Gastrointestinal: Reports: No Symptoms - Patient Data Vitals - Most Recent: Last Vital Signs Temp 95.7 F 03/10/19 14:45 Pulse 65 03/10/19 14:45 Resp 18 03/10/19 14:45 BP 119/67 03/10/19 14:45 Pulse Ox 92 L 03/10/19 14:45 Weight - Most Recent: 191 lb 6.4 oz I&O - Last 24 Hours: Intake & Output 03/10/19 03/10/19 03/10/19 06:59 14:59 22:59 Intake Total 20 50 Output Total 300 400 Balance -280 -350 Lab Results Last 24 Hours: Laboratory Results - last 24 hr 03/09/19 03/09/19 03/10/19 Range/Units 12:33 19:45 02:00 WBC (4.5-11.0) K/uL RBC (4.30-5.90) M/uL Hgb 8.8 L 9.6 L (12.0-15.0) g/dL Hct (40.0-54.0) % MCV (80-98) fL MCH (27-31) pg MCHC (32-36) % Plt Count (150-400) K/uL Sodium (140-148) mmol/L Potassium (3.6-5.2) mmol/L Chloride (100-108) mmol/L Carbon Dioxide (21-32) mmol/L Anion Gap (5.0-14.0) mmol/L BUN (7-18) mg/dL Creatinine (0.8-1.3) mg/dL Est Cr Clr Drug Dosing mL/min Estimated GFR (MDRD) (>60) Glucose (74-106) mg/dL Calcium (8.5-10.1) mg/dL Magnesium (1.8-2.4) mg/dL Crossmatch See Detail 03/10/19 03/10/19 Range/Units 05:00 05:00 WBC 5.7 (4.5-11.0) K/uL RBC 2.94 L (4.30-5.90) M/uL Hgb 8.8 L (12.0-15.0) g/dL Hct 30.8 L (40.0-54.0) % MCV 105 H (80-98) fL MCH 30 (27-31) pg MCHC 29 L (32-36) % Plt Count 169 (150-400) K/uL Sodium 137 L (140-148) mmol/L Potassium 4.5 (3.6-5.2) mmol/L Chloride 103 (100-108) mmol/L Carbon Dioxide 29 (21-32) mmol/L Anion Gap 9.5 (5.0-14.0) mmol/L BUN 16 (7-18) mg/dL Creatinine 1.1 (0.8-1.3) mg/dL Est Cr Clr Drug Dosing 65.41 mL/min Estimated GFR (MDRD) > 60 (>60) Glucose 83 (74-106) mg/dL Calcium 8.7 (8.5-10.1) mg/dL Magnesium 1.6 L (1.8-2.4) mg/dL Crossmatch Med Orders - Current: Current Medications Acetaminophen (Tylenol) 650 mg PO Q4H PRN PRN Reason: Pain (Mild 1-3)/fever Albuterol (Proventil Neb Soln) 2.5 mg NEB Q4H PRN PRN Reason: Shortness Of Breath/wheezing Bacitracin (Bacitracin Oint) 0 gm TOP BEDTIME [facility] Last Admin: 03/09/19 20:30 Dose: 1 applic Magnesium Sulfate 2 gm/ Premix 50 mls @ 25 mls/hr IV Q6H [facility] Stop: 03/10/19 17:59 Last Admin: 03/10/19 16:01 Dose: 25 mls/hr Magnesium Oxide (Magnesium Oxide) 400 mg PO BID [facility] Last Admin: 03/10/19 08:57 Dose: 400 mg Metoprolol Tartrate (Lopressor) 100 mg PO BID [facility] Last Admin: 03/10/19 08:56 Dose: 100 mg Ondansetron HCl (Zofran) 4 mg IV Q4H PRN PRN Reason: Nausea/Vomiting Rosuvastatin Calcium (Crestor) 20 mg PO DAILY [facility] Last Admin: 03/10/19 08:56 Dose: 20 mg Sodium Chloride (Saline Flush) 10 ml FLUSH ASDIRECTED PRN PRN Reason: Keep Vein Open Tramadol HCl (Ultram) 50 mg PO Q4H PRN PRN Reason: Pain Last Admin: 03/10/19 08:56 Dose: 50 mg Discontinued Medications Fentanyl (Sublimaze) Confirm Administered Dose 100 mcg .ROUTE .STK-MED ONE Stop: 03/09/19 10:43 Lactated Ringer's (Ringers, Lactated) 1,000 mls @ 100 mls/hr IV ASDIRECTED [facility] Last Admin: 03/09/19 10:06 Dose: 100 mls/hr Lactated Ringer's (Ringers, Lactated) 1,000 mls @ 125 mls/hr IV ASDIRECTED [facility] Last Admin: 03/10/19 02:10 Dose: 125 mls/hr Propofol (Diprivan 20 Ml) Confirm Administered Dose 200 mg .ROUTE .STK-MED ONE Stop: 03/09/19 10:43 - Exam Quality Assessment: DVT Prophylaxis General: Alert, Oriented, Cooperative, No Acute Distress Lungs: Clear to Auscultation, Normal Respiratory Effort Cardiovascular: Regular Rate, Regular Rhythm, Murmurs GI/Abdominal Exam: Soft, Non-Tender, No Organomegaly, No Distention - Problem List Review Problem List Initiated/Reviewed/Updated: Yes - My Orders Last 24 Hours: My Active Orders 03/09/19 16:34 traMADol [Ultram] 50 mg PO Q4H PRN 03/09/19 17:46 Antiembolic Devices [RC] .Routine Sequential Compression Device [OM.PC] Routine 03/09/19 21:00 Wound Care [RC] BEDTIME Bacitracin [Bacitracin Oint] 0 gm TOP BEDTIME Metoprolol Tartrate [Lopressor] 100 mg PO BID 03/10/19 08:37 Convert IV to Saline Lock [OM.PC] Routine 03/10/19 09:00 Magnesium Oxide 400 mg PO BID Rosuvastatin [Crestor] 20 mg PO DAILY 03/10/19 10:00 Magnesium Sulfate/Water [Magnesium Sulfate in Water Premix] 2 gm Premix Bag 1 bag IV Q6H 03/10/19 17:00 HGB [HEMOGLOBIN] [HEME] Stat 03/10/19 Breakfast GI Soft Low Fiber [Soft Diet] [DIET] 03/11/19 05:00 CBC WITH AUTO DIFF [HEME] Timed MAGNESIUM [CHEM] Timed - Plan Plan:: ASSESSMENT AND PLAN GI BLEED-no evidence of active bleeding since admission, EGD and colonoscopy obtained yesterday showed no obvious source of blood loss. -Discontinue warfarin and Lovenox -Serial hemoglobin levels -1 unit of red blood cells on hold -Consider repeat colonoscopy for further bleeding ACUTE BLOOD LOSS ANEMIA-hemoglobin stable following transfusion of 1 unit of red blood cells ATRIAL FIBRILLATION WITH CONTROLLED VENTRICULAR RESPONSE -Hold anticoagulation as above MAINTENANCE ISSUES -DVT prophylaxis; scuds, hold on anticoagulation because of acute bleed -GI prophylaxis; not indicated -Chow catheter; not indicated -Nutrition; nothing by mouth -Nicotine dependence; not required CODE STATUS-FULL CODE ADMISSION STATUS-patient will be admitted to inpatient status, expect at least a 2 night hospital stay for evaluation and management of problems as outlined above. At the time of this admission I do not reasonably expected evaluation and management of this problem will require more than a 96 hour hospital stay. DISPOSITION-anticipate discharge to home tomorrow PRIMARY CARE PROVIDER-Dr. Cormier
[2019-03-10] MEDS: Bacitracin Oint 28.35 GM Tube TOP SCH (21:31)
[2019-03-11] MEDS: Rosuvastatin 10 MG Tab PO SCH (09:50)
[2019-03-11] MEDS: Metoprolol Tartrate 50 MG Tab PO SCH (09:50)
[2019-03-11] MEDS: Magnesium Oxide 400 MG Tab PO SCH (09:50)
[2019-03-11 10:55] VITALS: BP 124/74
--- NOTE | 2019-03-11 12:25 | PCM.DCSUM1 ---
Discharge Summary - Hospital Course Brief History: Mr. Funes is a 78-year-old gentleman who was admitted as a direct admission from same day surgery with anemia and acute GI bleed. - Discharge Data Discharge Date: 03/11/19 Discharge Disposition: Home, Self-Care 01 Condition: Fair - Discharge Diagnosis/Problem(s) (1) Acute on chronic blood loss anemia SNOMED Code(s): 866738137 ICD Code: D62 - ACUTE POSTHEMORRHAGIC ANEMIA Status: Acute Current Visit : Yes (2) GI hemorrhage SNOMED Code(s): 43461872 ICD Code: K92.2 - GASTROINTESTINAL HEMORRHAGE, UNSPECIFIED Status: Acute Current Visit: Yes Qualifiers: GI bleed type/associated pathology: unspecified gastrointestinal hemorrhage type Qualified Code(s): K92.2 - Gastrointestinal hemorrhage, unspecified (3) History of atrial fibrillation SNOMED Code(s): 987798941 ICD Code: Z86.79 - PERSONAL HISTORY OF OTHER DISEASES OF THE CIRCULATORY SYSTEM Status: Chronic Current Visit: No - Patient Summary/Data Consults: Consultations 03/09/19 14:12 Consult to Physician [CONS] Routine Consulting Provider: Noe Wood Courtesy Call Completed to Consulting Physician: Yes Reason for Consult: GI bleed Hospital Course: Mr. Funes is a 78-year-old gentleman who was a direct admission through same- day surgery because of acute GI bleed. He was seen recently by his primary care provider and found to have significant anemia with a hemoglobin of just above 9. He was referred to Dr. Wood for upper and lower endoscopy. EGD was performed today and showed no obvious abnormalities to explain anemia. Colonoscopy was also obtained and showed red blood throughout the length of the colon, with no obvious bleeding source identified. Laboratory studies obtained after the procedure showed his hemoglobin is dropped to 8.4. He does feel as though he has become somewhat more weak and short of breath but denies any recent hematemesis, melena, or hematochezia. He was treated with oral anticoagulation with warfarin up until a week ago for atrial fibrillation. He was bridged with Lovenox over the past several days. He denies any previous history of GI bleeding. On admission he was given IV fluids for hydration and transfused 1 unit of red blood cells because of evidence of acute bleeding. He remained stable throughout the rest of his hospital stay with no evidence of ongoing bleeding or blood loss. Serial hemoglobin levels were obtained and remained within stable range after transfusion. Because of recent bleeding, warfarin and Lovenox will be held until he sees his primary care provider for follow-up. Consider outpatient referral to gastroenterology for further evaluation of bleeding, consider capsule endoscopy. Activity will be as tolerated and he will remain on a soft low residue diet over the next 2 weeks. Follow-up appointment will be scheduled with his primary care provider within one week and the hemoglobin level will be obtained at the time of follow-up appointment. - Patient Instructions Diet: GI Soft/Low Residue/Low Fiber Activity: As Tolerated Other/Special Instructions: Schedule follow-up appointment with primary care provider within one week. Hemoglobin level should be obtained at the time of follow-up appointment. Consider outpatient referral to gastroenterology for further evaluation of GI bleed and possible capsule endoscopy. - Discharge Plan *PRESCRIPTION DRUG MONITORING PROGRAM REVIEWED*: Not Applicable *COPY OF PRESCRIPTION DRUG MONITORING REPORT IN PATIENT MOHINI: Not Applicable Home Medications: Home Meds Metoprolol Tartrate 100 mg PO BID 02/08/15 [History] Multivitamin with Minerals [Multiple Vitamin] 1 tab PO DAILY 02/08/15 [History] Ranitidine HCl 150 mg PO BID PRN 02/08/15 [History] Rosuvastatin [Crestor] 20 mg PO DAILY 12/04/17 [History] Ibuprofen 200 mg PO Q6HR PRN 03/07/19 [History] - Discharge Summary/Plan Comment DC Time >30 min.: No - Patient Data Vitals - Most Recent: Last Vital Signs Temp 95.6 F 03/11/19 10:53 Pulse 82 03/11/19 10:53 Resp 16 03/11/19 10:53 BP 124/74 03/11/19 10:53 Pulse Ox 94 L 03/11/19 10:53 Weight - Most Recent: 189 lb I&O - Last 24 hours: Intake & Output 03/10/19 03/11/19 03/11/19 22:59 06:59 14:59 Intake Total 290 Output Total 525 650 Balance -235 -650 Lab Results - Last 24 hrs: Laboratory Results - last 24 hr 03/10/19 03/11/19 03/11/19 Range/Units 16:55 05:30 05:30 WBC 6.1 (4.5-11.0) K/uL RBC 2.97 L (4.30-5.90) M/uL Hgb 9.2 L 8.9 L (12.0-15.0) g/dL Hct 30.8 L (40.0-54.0) % MCV 104 H (80-98) fL MCH 30 (27-31) pg MCHC 29 L (32-36) % Plt Count 159 (150-400) K/uL Neut % (Auto) 70 H (36-66) % Lymph % (Auto) 10 L (24-44) % [place] % (Auto) 15 H (2-6) % Eos % (Auto) 4 (2-4) % Baso % (Auto) 1 (0-1) % Magnesium 2.1 (1.8-2.4) mg/dL Med Orders - Current: Current Medications Acetaminophen (Tylenol) 650 mg PO Q4H PRN PRN Reason: Pain (Mild 1-3)/fever Albuterol (Proventil Neb Soln) 2.5 mg NEB Q4H PRN PRN Reason: Shortness Of Breath/wheezing Bacitracin (Bacitracin Oint) 0 gm TOP BEDTIME [facility] Last Admin: 03/10/19 21:31 Dose: 1 applic Magnesium Oxide (Magnesium Oxide) 400 mg PO BID [facility] Last Admin: 03/11/19 09:50 Dose: 400 mg Metoprolol Tartrate (Lopressor) 100 mg PO BID [facility] Last Admin: 03/11/19 09:50 Dose: 100 mg Ondansetron HCl (Zofran) 4 mg IV Q4H PRN PRN Reason: Nausea/Vomiting Rosuvastatin Calcium (Crestor) 20 mg PO DAILY [facility] Last Admin: 03/11/19 09:50 Dose: 20 mg Sodium Chloride (Saline Flush) 10 ml FLUSH ASDIRECTED PRN PRN Reason: Keep Vein Open Tramadol HCl (Ultram) 50 mg PO Q4H PRN PRN Reason: Pain Last Admin: 03/10/19 08:56 Dose: 50 mg Discontinued Medications Fentanyl (Sublimaze) Confirm Administered Dose 100 mcg .ROUTE .STK-MED ONE Stop: 03/09/19 10:43 Lactated Ringer's (Ringers, Lactated) 1,000 mls @ 100 mls/hr IV ASDIRECTED [facility] Last Admin: 03/09/19 10:06 Dose: 100 mls/hr Lactated Ringer's (Ringers, Lactated) 1,000 mls @ 125 mls/hr IV ASDIRECTED [facility] Last Admin: 03/10/19 02:10 Dose: 125 mls/hr Magnesium Sulfate 2 gm/ Premix 50 mls @ 25 mls/hr IV Q6H [facility] Stop: 03/10/19 17:59 Last Admin: 03/10/19 16:01 Dose: 25 mls/hr Propofol (Diprivan 20 Ml) Confirm Administered Dose 200 mg .ROUTE .STK-MED ONE Stop: 03/09/19 10:43 - Exam General: Reports: Alert, Oriented, Cooperative, No Acute Distress Lungs: Reports: Clear to Auscultation, Normal Respiratory Effort, Decreased Breath Sounds Cardiovascular: Reports: Regular Rate, Irregular Rhythm, Murmurs GI/Abdominal Exam: Soft, Non-Tender, No Organomegaly, No Distention Extremities: Non-Tender, No Pedal Edema *Q Meaningful Use (DIS) - VTE *Q VTE Pharmacological Contraindications *Q: Active Hemorrhage
== END 2019-03-11 13:26 | disposition home or self-care (01) | DRG 378 ==
LOC: JP.SDSSCHI 09:11 → JP.SDS 09:11 → EDSTATUS 11:00 → JP.MS 13:46
PROVIDERS: ADMIT Hospitalist; ATTEND Surgery
PROC: 0DJD8ZZ Inspection of Lower Intestinal Tract, Via Natural or Artificial Opening Endoscopic (ICD-10-PCS; principal; 2019-03-09)
PROC: 0DJ08ZZ Inspection of Upper Intestinal Tract, Via Natural or Artificial Opening Endoscopic (ICD-10-PCS; 2019-03-09)
PROC: 30233N1 Transfusion of Nonautologous Red Blood Cells into Peripheral Vein, Percutaneous Approach (ICD-10-PCS; 2019-03-09)
DX: K92.1 Melena (principal); D62 Acute posthemorrhagic anemia; K92.2 Gastrointestinal hemorrhage, unspecified; Z86.010 Personal history of colon polyps; I48.91 Unspecified atrial fibrillation; Z79.01 Long term (current) use of anticoagulants; I10 Essential (primary) hypertension; H54.7 Unspecified visual loss; E78.00 Pure hypercholesterolemia, unspecified; Z85.46 Personal history of malignant neoplasm of prostate; K21.9 Gastro-esophageal reflux disease without esophagitis; Z87.891 Personal history of nicotine dependence; Z79.899 Other long term (current) drug therapy; Z90.79 Acquired absence of other genital organ(s); Z89.422 Acquired absence of other left toe(s); Z89.421 Acquired absence of other right toe(s); Z89.411 Acquired absence of right great toe; E61.1 Iron deficiency
CPT/HCPCS: 36415; 36430; 80048; 80053; 83735; 85018; 85025; 85027; 85610; 85730; 86850; 86900; 86901; 86920; 86922; A9270-GY; J2704; J3010; J3475; J7120; P9016